=== PATIENT | female | born 1950 | race Caucasian/White ===

== ENCOUNTER → 2016-07-25 | Outpatient (CLI) | payer MEDICARE ==
[~2016-07-25] MED LIST: LOVA40TA2 PO; OMEP20TA7 PO; PANT40TA2 PO; SUCR1TAB36 PO; TRIA1TAB3 PO
--- OUTSIDE RECORDS SUMMARY | 2016-07-25 09:02 | XMS REPORT | Continuity of Care Document ---
Author Author [facility] Address Unknown Phone Unavailable Allergies Active Description Code Type Severity Reaction Onset Reported/Identified Relationship to Patient Clinical Status Yes No Known Drug Allergies [id number] Drug Allergy Unknown N/ A 08/31/2015 Medications Problems Date Dx Coded Attending Type Code Diagnosis Diagnosed By 12/18/2009 Ot V12.72 12/18/2009 Ot V67.09 2012 381.81 EUSTACHIAN TUBE DYSFUNCTION 2012 381.81 EUSTACHIAN TUBE DYSFUNCTION 2012 381.81 EUSTACHIAN TUBE DYSFUNCTION 2012 SCOTT CARRERA APRN 381.81 EUSTACHIAN TUBE DYSFUNCTION 2012 SCOTT CARRERA APRN 381.81 EUSTACHIAN TUBE DYSFUNCTION 03/25/2012 V03.82 PPV23 (PNEUMOVAX) DX 03/25/2012 V04.81 FLU DX (3 YRS AND ABOVE, IM) 03/25/2012 V03.82 PPV23 (PNEUMOVAX) DX 03/25/2012 V04.81 FLU DX (3 YRS AND ABOVE, IM) 03/25/2012 V03.82 PPV23 (PNEUMOVAX) DX 03/25/2012 V04.81 FLU DX (3 YRS AND ABOVE, IM) 03/25/2012 SCOTT CARRERA APRN A V03.82 PPV23 (PNEUMOVAX) DX 03/25/2012 SCOTT CARRERA APRN A V04.81 FLU DX (3 YRS AND ABOVE, IM) 03/25/2012 SCOTT CARRERA APRN V03.82 PPV23 (PNEUMOVAX) DX 03/25/2012 SCOTT CARRERA APRN V04.81 FLU DX (3 YRS AND ABOVE, IM) 07/01/2012 V05.8 ZOSTAVAX DX 07/01/2012 V05.8 ZOSTAVAX DX 07/01/2012 V05.8 ZOSTAVAX DX 07/01/2012 SCOTT CARRERA APRN A V05.8 ZOSTAVAX DX 07/01/2012 SCOTT CARRERA APRN A V05.8 ZOSTAVAX DX 08/12/2012 461.9 SINUSITIS ACUTE 08/12/2012 461.9 SINUSITIS ACUTE 08/12/2012 AMBREEN CARRERA APRNYL A 461.9 SINUSITIS ACUTE 08/12/2012 AMBREEN CARRERA APRNYL A 461.9 SINUSITIS ACUTE 09/30/2012 729.5 PAIN- ARM 09/30/2012 E888.9 UNSPECIFIED ACCIDENTAL FALL 09/30/2012 AMBREEN CARRERA APRNYL A 729.5 PAIN- ARM 09/30/2012 AMBREEN CARRERA APRNYL A E888.9 UNSPECIFIED ACCIDENTAL FALL 09/30/2012 AMBREEN CARRERA APRNYL A 729.5 PAIN- ARM 09/30/2012 AMBREEN CARRERA APRNYL A E888.9 UNSPECIFIED ACCIDENTAL FALL 04/21/2014 Ot 611.72 04/21/2014 Ot V76.12 04/21/2014 Ot 610.0 04/21/2014 Ot V76.12 04/21/2014 Ot V76.12 04/21/2014 Ot 793.80 04/21/2014 Ot V76.12 04/21/2014 Ot 793.89 04/21/2014 SCOTT CARRERA CERTIFIED MIDWIFE Ot 729.5 04/21/2014 SCOTT CARRERA CERTIFIED MIDWIFE Ot 729.81 04/21/2014 TYLER ROSE DO Ot 793.89 04/21/2014 TYLER ROSE DO Ot V76.12 04/27/2014 Ot 611.72 04/27/2014 Ot V76.12 04/27/2014 Ot 610.0 04/27/2014 Ot V76.12 04/27/2014 Ot V76.12 04/27/2014 Ot 793.80 04/27/2014 Ot V76.12 04/27/2014 Ot 793.89 04/27/2014 SCOTT CARRERA A CERTIFIED MIDWIFE Ot 729.5 04/27/2014 SCOTT CARRERA CERTIFIED MIDWIFE Ot 729.81 04/27/2014 TYLER ROSE DO Ot 793.89 04/27/2014 TYLER ROSE DO Ot V76.12 06/06/2014 Ot 611.72 06/06/2014 Ot V76.12 06/06/2014 Ot 610.0 06/06/2014 Ot V76.12 06/06/2014 Ot V76.12 06/06/2014 Ot 793.80 06/06/2014 Ot V76.12 06/06/2014 Ot 793.89 06/06/2014 SCOTT CARRERA CERTIFIED MIDWIFE Ot 729.5 06/06/2014 SCOTT CARRERA CERTIFIED MIDWIFE Ot 729.81 06/06/2014 YTLER ROSE DO Ot 793.89 06/06/2014 TYLER ROSE DO Ot V76.12 09/06/2014 Ot 611.72 09/06/2014 Ot V76.12 09/06/2014 Ot 610.0 09/06/2014 Ot V76.12 09/06/2014 Ot V76.12 09/06/2014 Ot 793.80 09/06/2014 Ot V76.12 09/06/2014 Ot 793.89 09/06/2014 SCOTT CARRERA CERTIFIED MIDWIFE Ot 729.5 09/06/2014 SCOTT CARRERA CERTIFIED MIDWIFE Ot 729.81 09/06/2014 TYLER ROSE DO Ot 793.89 09/06/2014 TYLER ROSE DO Ot V76.12 09/26/2014 Ot 611.72 09/26/2014 Ot V76.12 09/26/2014 Ot 610.0 09/26/2014 Ot V76.12 09/26/2014 Ot V76.12 09/26/2014 Ot 793.80 09/26/2014 Ot V76.12 09/26/2014 Ot 793.89 09/26/2014 SCOTT CARRERA CERTIFIED MIDWIFE Ot 729.5 09/26/2014 SCOTT CARRERA CERTIFIED MIDWIFE Ot 729.81 09/26/2014 TYLER ROSE DO Ot 793.89 09/26/2014 TYLER ROSE DO Ot V76.12 10/05/2014 KM ROSE CERTIFIED MIDWIFE Ot 793.89 11/25/2014 ROSEKM CAMP CERTIFIED MIDWIFE Ot 793.89 02/20/2015 Ot 610.0 02/20/2015 Ot V76.12 02/20/2015 Ot V76.12 02/20/2015 Ot 793.80 02/20/2015 Ot V76.12 02/20/2015 Ot 793.89 02/20/2015 SCOTT CARRERA CERTIFIED MIDWIFE Ot 729.5 02/20/2015 SCOTT CARRERA CERTIFIED MIDWIFE Ot 729.81 02/20/2015 MILTON ANGEL TYLER Simth Ot 793.89 02/20/2015 MILTON ANGEL TYLER Luis Ot V76.12 08/31/2015 MANNY STRANGE DO Ot K21.9 GASTRO-ESOPHAGEAL REFLUX DISEASE WITHOUT 08/31/2015 MANNY STRANGE DO Ot Z01.818 ENCOUNTER FOR OTHER PREPROCEDURAL EXAMIN 08/31/2015 MANNY STRANGE DO Ot Z12.11 ENCOUNTER FOR SCREENING FOR MALIGNANT NE 08/31/2015 MANNY STRANGE DO Ot Z86.010 PERSONAL HISTORY OF COLONIC POLYPS 09/01/2015 MANNY STRANGE DO Ot K21.9 09/01/2015 MANNY STRANGE DO Ot Z01.818 09/01/2015 MANNY STRANGE DO Ot Z12.11 09/01/2015 MANNY STRANGE DO Ot Z86.010 09/05/2015 MANNY STRANGE DO Ot K20.9 ESOPHAGITIS, UNSPECIFIED 09/05/2015 MANNY STRANGE DO Ot K21.9 GASTRO-ESOPHAGEAL REFLUX DISEASE WITHOUT 09/05/2015 MANNY STRANGE DO Ot K57.30 DVRTCLOS OF LG INT W/O PERFORATION OR AB 09/05/2015 MANNY STRANGE DO Ot K62.1 RECTAL POLYP 09/05/2015 MANNY STRANGE DO Ot Z12.11 ENCOUNTER FOR SCREENING FOR MALIGNANT NE 09/05/2015 MANNY STRANGE DO Ot Z86.010 PERSONAL HISTORY OF COLONIC POLYPS 09/06/2015 MANNY STRANGE DO Ot K20.9 09/06/2015 MANNY STRANGE DO Ot K21.9 09/06/2015 MANNY STRANGE DO Ot K57.30 09/06/2015 MANNY STRANGE DO Ot K62.1 09/06/2015 MANNY STRANGE DO Ot Z12.11 09/06/2015 MANNY STRANGE DO Ot Z86.010 05/14/2016 MILTON KM Olga PERRI Ot 793.89 OTH (ABN) FINDINGS ON RADIOLOGICAL EXAMI 05/15/2016 TYLER ROSE DO Ot Z12.31 ENCNTR SCREEN MAMMOGRAM FOR MALIGNANT NE 05/16/2016 TYLER ROSE DO Ot Z12.31 ENCNTR SCREEN MAMMOGRAM FOR MALIGNANT NE 06/06/2016 TYLER ROSE DO Ot Z12.31 ENCNTR SCREEN MAMMOGRAM FOR MALIGNANT NE Procedures Code [place] [address] OXIMETRY 2012 24478 XRAY FOREARM RIGHT 2 VIEWS 09/30/2012 48929 XRAY WRIST RIGHT 2 VIEWS 09/30/2012 Results Encounters ACCT No. Visit Date/Time Discharge Status Pt. Type Provider Facility Loc./Unit Complaint [id number] 03/23/2014 09:42:00 03/23/2014 23: 59:59 CLS Outpatient SCOTT CARRERA APRN [id number] 03/17/2013 14:04:00 03/17/2013 23: 59:59 CLS Outpatient SCOTT CARRERA APRN [id number] 08/12/2012 10:47:00 08/12/2012 23: 59:59 CLS Outpatient [id number] 07/01/2012 09:01:00 07/01/2012 23: 59:59 CLS Outpatient [id number] 09/30/2012 13:48:00 Document Registration [id number] 07/02/2012 14:03:08 RECURRING
--- NOTE | 2016-07-25 16:33 | Diagnostic Imaging Report ---
EXAMINATION: DEXA scan. INDICATION: Osteopenia. TECHNIQUE: Bone mineral density estimated based on dual energy radiography over the lumbar spine and femoral necks, was performed. FINDINGS: The lumbar spine T-score is 1.3. This is 15% increased density measurements compared to 2003 with the difference probably related to development of degenerative sclerosis. The T score over the left femoral neck is -0.3 on the left and on the right is -0.7. This is 6% decreased density measurement compared to the prior exam. IMPRESSION: Bone density measurements are within normal limits. Dictated by: Dictated on workstation # [id number]
== END ==
LOC: RAD 08:59
PROVIDERS: ATTEND Internal Medicine
DX: Z13.820 Encounter for screening for osteoporosis (principal)
CPT/HCPCS: 77080

== ENCOUNTER → 2017-08-18 | Outpatient (CLI) | payer MEDICARE ==
--- NOTE | 2017-08-19 08:07 | Diagnostic Imaging Report ---
INDICATION: Digital mammogram bilateral screening. This study was compared to the prior exam of 05/14/2016, 09/28/2014 and 08/30/2013. At this time, there are no current complaints. The current study was also evaluated with a Computer Aided Detection (CAD) system. FINDINGS: The fibroglandular tissue in both breasts is heterogeneously dense. This does limit the sensitivity of this exam. Overall, there does not appear to have been any significant change when compared to the prior study. No primary or secondary sign of malignancy is noted. IMPRESSION: There is no radiographic evidence for malignancy. ACR BI-RADS Category 1: Negative. Result letter will be mailed to the patient. Note: At least 10% of breast cancer is not imaged by mammography. Dictated by: Dictated on workstation # [id number]
== END ==
LOC: RAD 10:25
PROVIDERS: ATTEND Internal Medicine
DX: Z12.31 Encounter for screening mammogram for malignant neoplasm of breast (principal)
CPT/HCPCS: 77067

== ENCOUNTER → 2018-09-11 | Outpatient (CLI) | payer MEDICARE ==
--- NOTE | 2018-09-11 16:51 | Diagnostic Imaging Report ---
INDICATION: Routine screening. COMPARISON: Prior mammogram from 08/18/2017 and 05/14/2016. EXAMINATION: 2D and 3D bilateral screening mammography was performed with CAD. The current study was also evaluated with a Computer Aided Detection (CAD) system. FINDINGS: Both breasts remain heterogeneously dense, limiting the sensitivity of mammography. No dominant mass or malignant appearing microcalcifications are seen. There are benign calcifications, bilaterally. The axillae are unremarkable. IMPRESSION: No mammographic features suspicious for malignancy are identified. ACR BI-RADS Category 2: Benign findings. Result letter will be mailed to the patient. Note: At least 10% of breast cancer is not imaged by mammography. Dictated on workstation # [id number]
== END ==
LOC: RAD 08:25
PROVIDERS: ATTEND Internal Medicine
DX: Z12.31 Encounter for screening mammogram for malignant neoplasm of breast (principal)
CPT/HCPCS: 77067

== ENCOUNTER → 2019-11-12 | Outpatient (CLI) | payer MEDICARE ==
--- NOTE | 2019-11-12 13:50 | Diagnostic Imaging Report ---
INDICATION: Screening. EXAM: Digital screening with CAD. COMPARISONS: 09/2018, 08/2017 and 05/2016. FINDINGS: The parenchymal pattern is heterogeneously dense, unchanged from prior. No appreciable mass, architectural distortion, spiculated lesions, suspicious calcifications or interval changes are apparent. IMPRESSION: Stable negative mammogram. BI-RADS Category 1 ACR BI-RADS Category 1: Negative. Result letter will be mailed to the patient. Note: At least 10% of breast cancer is not imaged by mammography. Dictated by: Dictated on workstation # [id number]
== END ==
LOC: RAD 09:10
PROVIDERS: ATTEND Internal Medicine
DX: Z12.31 Encounter for screening mammogram for malignant neoplasm of breast (principal)
CPT/HCPCS: 77063; 77067

== ENCOUNTER → 2020-07-14 | Outpatient (CLI) | payer MEDICARE ==
[~2020-07-14] VITALS: Ht 165 cm; Wt 89.0 kg
[~2020-07-14] MED LIST changes: +BAMLANIVIMAB (NON FORM) 700 MG in NS (IVPB) 250 ML IV ONE; +EPINEPHrine INJECTION 1 MG/ML AMP IM PRN; +diphenhydrAMINE 50 MG/ML INJ (BENADRYL) IV PRN
[2020-07-14 08:03] VITALS: BP 148/72
[2020-07-14 10:29] VITALS: BP 158/85
== END ==
LOC: INFUSION 08:08
PROVIDERS: ATTEND Nurse Practitioner Family
DX: U07.1 COVID-19 (principal); I10 Essential (primary) hypertension; E78.49 Other hyperlipidemia; E66.8 Other obesity

== ENCOUNTER → 2020-12-29 | Outpatient (CLI) | payer MEDICARE ==
[~2020-12-29] MED LIST changes: -BAMLANIVIMAB (NON FORM) 700 MG in NS (IVPB) 250 ML IV ONE; -EPINEPHrine INJECTION 1 MG/ML AMP IM PRN; +FAMO-119 PO; -diphenhydrAMINE 50 MG/ML INJ (BENADRYL) IV PRN
--- NOTE | 2020-12-29 12:41 | Diagnostic Imaging Report ---
Indication: 2-D and 3-D digital screening with CAD. COMPARISON: 11/2019, 09/2018 and 08/2017 FINDINGS: Heterogeneously dense parenchymal pattern persists limiting mammographic sensitivity. Benign circumscribed nodularity bilaterally is either unchanged or decreased over the interim. No dominant mass, spiculated lesion, architectural distortion, suspicious calcifications or findings felt suggestive of malignancy. IMPRESSION: Benign findings as described. BI-RADS Category 2 ACR BI-RADS Category 2: Benign findings. Result letter will be mailed to the patient. Note: At least 10% of breast cancer is not imaged by mammography. Dictated by: Dictated on workstation # [id number]
== END ==
LOC: RAD 10:45
PROVIDERS: ATTEND Internal Medicine
DX: Z12.31 Encounter for screening mammogram for malignant neoplasm of breast (principal)
CPT/HCPCS: 77063; 77067

== ENCOUNTER 2021-01-05 05:30 | Outpatient (RCR) | payer MEDICARE ==
[~2021-01-05] VITALS: Ht 165.1 cm; Wt 89.0 kg
== END 2021-01-05 09:56 | disposition home or self-care (01) ==
LOC: PREOP 05:30
PROVIDERS: ATTEND Surgery
DX: Z01.812 Encounter for preprocedural laboratory examination (principal); Z12.11 Encounter for screening for malignant neoplasm of colon; K21.9 Gastro-esophageal reflux disease without esophagitis; K63.5 Polyp of colon; Z20.822 Contact with and (suspected) exposure to COVID-19
CPT/HCPCS: 87635

== ENCOUNTER 2021-01-09 07:55 | Day surgery (SDC) | payer MEDICARE ==
[~2021-01-09] VITALS: Ht 165 cm; Wt 89.0 kg
[2021-01-09] MEDS ORDERED: LACTATED RINGERS 1,000 ML IV STA (08:11)
[2021-01-09] MEDS ORDERED: HURRICAINE EXT TUBE (BENZOCAINE) XX PRN (08:15)
[2021-01-09 08:20] VITALS: BP 160/80
[2021-01-09] MEDS ORDERED: MIDAZOLAM 2 MG/2 ML (VERSED) VIAL ONE (08:59)
[2021-01-09] MEDS ORDERED: PROPOFOL INJECTION 50 ML IV ONE (09:00)
--- NOTE | 2021-01-09 09:33 | Discharge Inst-Simple/Standard ---
Discharge Inst-Standard Patient Instructions/Follow Up Plan of Care/Instructions/FU: 2 weeks Ema Activity as Tolerated: Yes Discharge Diet: Regular Diet (high fiber) MANNY STRANGE DO Jan 09, 2021 09:33
--- NOTE | 2021-01-09 09:34 | Progress Note-Post Operative ---
Post-Operative Progess Note Surgeon (s)/Assembler [employer] (s) Surgeon MANNY STRANGE DO As[employer]: na Pre-Operative Diagnosis GERD, history of polyps Post-Operative Diagnosis hiatal hernia, gastric polpys, diverticulosis Procedure & Operative Findings Date of Procedure 01/09/21 Procedure Performed/Findings egd c biopsies, colonoscopy Anesthesia Type per city distribution clerk Estimated Blood Loss Estimated blood loss (mL): none Specimens/Packing Specimens Removed antrum, ge MANNY STRANGE DO Jan 09, 2021 09:34
[2021-01-09 09:40] VITALS: BP 121/59
[2021-01-09 09:45] VITALS: BP 118/56
[2021-01-09 09:50] VITALS: BP 135/66
[2021-01-09 10:05] VITALS: BP 172/84
[2021-01-09 10:15] VITALS: BP 172/84
--- NOTE | 2021-01-09 11:41 | Anesthesia-General Post-Op ---
MAC Patient Condition Mental Status/LOC: Same as Preop Cardiovascular: Satisfactory Nausea/Vomiting: Absent Respiratory: Satisfactory Pain: Controlled Complications: Absent Post Op Complications Complications None Follow Up Care/Instructions Patient Instructions None needed. Anesthesiology Discharge Order Discharge Order Patient is doing well, no complaints, stable vital signs, no apparent adverse anesthesia problems. No complications reported per nursing. CARL AKHTAR CRNA Jan 09, 2021 11:41
--- NOTE | 2021-01-09 16:13 | OPERATIVE REPORT ---
DATE OF SERVICE: 01/09/2021 PREOPERATIVE DIAGNOSES: Gastroesophageal reflux disease, history of polyps. POSTOPERATIVE DIAGNOSES: Hiatal hernia, gastric polyps, diverticulosis. PROCEDURE: EGD with biopsies, colonoscopy. SURGEON: Manny Boo DO ANESTHESIA: Per ENVIRONMENTAL SERVICES ASSISTANT. ESTIMATED BLOOD LOSS: None. COMPLICATIONS: None. INDICATIONS: The patient is a 70-year-old female needing a screening colonoscopy due to history of polyps and she also has GERD symptoms. She understands risks and benefits of procedures and wished to proceed with procedure. Consent was signed in the chart. DESCRIPTION OF PROCEDURE: The patient was taken to the endoscopy suite, placed in left lateral recumbent position. Timeout was performed. Scope was inserted in mouth, down the esophagus, stomach and into the duodenum without difficulty. No polyps, masses or ulcerations appeared within the duodenum. Scope was slowly retracted back to stomach where it was further insufflated. Multiple benign-appearing gastric polyps appeared. Biopsy of the GE junction was obtained. No masses or ulcerations. Scope was retroflexed noting hiatal hernia, no other pathology. Scope was returned to its normal position, slowly withdrawn to distal esophagus. No polyps, masses or ulcerations. Biopsy of the GE junction was obtained. Scope was slowly retracted back until completely removed, noting no other pathology. Digital rectal exam was performed. No palpable polyps, masses or ulcerations. Scope was inserted in the rectum, advanced all the way to cecum with minimal difficulty. Prep was adequate. Scope was then slowly retracted back. No polyps, masses or ulcerations within the cecum, ascending, transverse, descending and sigmoid colon. Through the left colon, there was diverticulosis present. Scope once in the rectum was retroflexed noting no other pathology. Scope was returned to its normal position, slowly withdrawn until completely removed. The patient tolerated procedure well without any complications. She was taken to recovery room in stable condition. RECOMMENDATIONS: Continue on current medications. Await biopsy results. She will follow up in the office in 2 weeks to discuss. The patient will need repeat colonoscopy in 5 years if benefits outweigh risks. Any issues before that be seen at that time. Job ID: [id number] DocumentID: [id number] Dictated Date: 01/09/2021 09:36:48 Clinical Operations Manager Date: 01/09/2021 16:13:20 Dictated By: MANNY BOO DO
== END 2021-01-09 10:25 | disposition home or self-care (01) ==
LOC: ENDO 07:55
PROVIDERS: ATTEND Surgery
DX: Z12.11 Encounter for screening for malignant neoplasm of colon (principal); K57.30 Diverticulosis of large intestine without perforation or abscess without bleeding; K31.7 Polyp of stomach and duodenum; K44.9 Diaphragmatic hernia without obstruction or gangrene; K21.9 Gastro-esophageal reflux disease without esophagitis; I10 Essential (primary) hypertension; E78.00 Pure hypercholesterolemia, unspecified; Z86.010 Personal history of colon polyps; Z79.899 Other long term (current) drug therapy; Z80.9 Family history of malignant neoplasm, unspecified
CPT/HCPCS: 43239; G0105; 88305

== ENCOUNTER → 2022-02-26 | Outpatient (CLI) | payer MEDICARE ==
[~2022-02-26] MED LIST changes: +OMEP20TA56 PO; -OMEP20TA7 PO
--- NOTE | 2022-02-26 12:50 | Diagnostic Imaging Report ---
INDICATION: Routine screening. COMPARISON: 12/29/2020 and 11/12/2019. TECHNIQUE: 2D and 3D bilateral screening mammography was performed with CAD. FINDINGS: Both breasts are heterogeneously dense, limiting the sensitivity of mammography. The overall parenchymal pattern appears stable. No dominant mass or malignant-appearing microcalcifications are seen. There are benign calcifications. The axillae are unremarkable. IMPRESSION: No mammographic features suspicious for malignancy are identified. ACR BI-RADS Category 2: Benign findings. Result letter will be mailed to the patient. Note: At least 10% of breast cancer is not imaged by mammography. Dictated by: Dictated on workstation # [id number]
== END ==
LOC: RAD 10:10
PROVIDERS: ATTEND Internal Medicine
DX: Z12.31 Encounter for screening mammogram for malignant neoplasm of breast (principal)
CPT/HCPCS: 77063; 77067